=== PATIENT | female | born 1990 | race Caucasian/White ===

== ENCOUNTER 2016-06-05 15:11 | Emergency (ER) | payer MEDICAID ==
[2016-06-05] MEDS ORDERED: DILAUDID 1 MG/ML AMP ONE (18:00)
[2016-06-05] MEDS ORDERED: ONDANSETRON 4 MG VIAL ONE (18:00)
[2016-06-05] MEDS ORDERED: SODIUM CHLORIDE 0.9% 1,000 ML ONE ×2 (18:01→19:41)
[2016-06-05] MEDS ORDERED: DIPHENHYDRAMINE 50 MG/ML VIAL ONE (19:25)
[2016-06-05] MEDS ORDERED: HALOPERIDOL 5 MG/ML VIAL ONE (19:25)
== END 2016-06-05 20:54 | disposition home or self-care (01) ==
LOC: ER 15:11
DX: K52.9 Noninfective gastroenteritis and colitis, unspecified (principal); F17.200 Nicotine dependence, unspecified, uncomplicated
CPT/HCPCS: 36415; 80053; 81001; 83690; 84703; 85025; 87077; 87088; 87186; 96361; 96374; 96375